=== PATIENT | male | born 1995 | race African-American/Black ===

== ENCOUNTER 2017-10-27 14:39 | Emergency (ER) | payer OTHER ==
[~2017-10-27] VITALS: Ht 180.3 cm; Wt 80.7 kg
[~2017-10-27 14:39] MED LIST: OXICODONE
[2017-10-27] MEDS ORDERED: NAPROSYN500 MG PO (14:59)
[2017-10-27 15:10] VITALS: BP 111/50
== END 2017-10-27 15:11 | disposition home or self-care (01) ==
LOC: M.ERS 14:39
DX: S70.02XA Contusion of left hip, initial encounter (principal); X58.XXXA Exposure to other specified factors, initial encounter; Y93.89 Activity, other specified; Y92.89 Other specified places as the place of occurrence of the external cause; Y99.8 Other external cause status

== ENCOUNTER 2018-07-08 12:26 | Emergency (ER) | payer OTHER ==
[~2018-07-08] VITALS: Ht 180.3 cm; Wt 79.4 kg
[~2018-07-08 12:26] MED LIST changes: +NAPROSYN500 MG PO
[2018-07-08 13:35] VITALS: BP 133/67
== END 2018-07-08 13:36 | disposition home or self-care (01) ==
LOC: M.ERS 12:26
DX: S49.91XA Unspecified injury of right shoulder and upper arm, initial encounter (principal); W19.XXXA Unspecified fall, initial encounter; Y93.61 Activity, american tackle football; Y92.89 Other specified places as the place of occurrence of the external cause; Y99.8 Other external cause status

== ENCOUNTER 2019-04-04 08:46 | Emergency (ER) | payer OTHER ==
[~2019-04-04] VITALS: Ht 180.3 cm; Wt 79.4 kg
[2019-04-04] MEDS ORDERED: GENTAK5 ML INTRAOCULR (09:30)
[2019-04-04 09:44] VITALS: BP 128/71
== END 2019-04-04 09:44 | disposition home or self-care (01) ==
LOC: M.ERS 08:46
DX: H10.9 Unspecified conjunctivitis (principal)